=== PATIENT | female | born 1945 | race Two or more races ===

== ENCOUNTER 2019-12-27 14:20 | Emergency (ER) | payer MEDICARE, MEDICAID ==
[~2019-12-27] VITALS: Ht 154.9 cm; Wt 52.2 kg
[~2019-12-27 14:20] MED LIST: CIPRO500 MG PO; DONEPEZIL HCL5 MG ORAL; FOLIC ACID1 MG ORAL; LISINOPRIL10 MG ORAL; LORAZEPAM0.5 MG ORAL; MECLIZINE HCL25 MG ORAL; MELOXICAM7.5 MG PO; METFORMIN HCL500 M1 ORAL; OMEPRAZOLE20 M2 ORAL; PAROXETINE HC12.5 MG ORAL; SIMVASTATIN40 MG ORAL; SYNTHROID25 MCG ORAL; TRAZODONE HCL150 MG ORAL; TYLENOL EXTRA500 MG ORAL; ZYPREXA10 MG ORAL
[2019-12-27] MEDS ORDERED: URECHOLINE25 M1 ORAL (14:30)
[2019-12-27] MEDS ORDERED: CELEXA20 MG ORAL (14:30)
[2019-12-27] MEDS ORDERED: PRAVASTATIN SOD20 M1 ORAL (14:30)
[2019-12-27] MEDS ORDERED: LINZESS290 MCG PO (14:30)
[2019-12-27] MEDS ORDERED: BISACODYL5 MG ORAL (14:32)
[2019-12-27] MEDS ORDERED: MILK OF MA400 MG/51 ORAL (14:32)
[2019-12-27] MEDS ORDERED: DAILY VALUE1 EAC1 PO (14:32)
[2019-12-27] MEDS ORDERED: MIRALAX17 GM ORAL (14:32)
[2019-12-27] MEDS ORDERED: ASPIR 8181 MG ORAL (14:32)
[2019-12-27 15:00] VITALS: BP 115/69
--- NOTE | 2019-12-27 15:17 | Emergency Room Report ---
History of Present Illness General Chief Complaint: Multiple Trauma/Fall Source: Patient Present Illness HPI 74-year-old female history of dementia, psychiatric disease presented from nursing home facility after a unwitnessed fall. She has a hematoma to her forehead. She is unable to provide any history due to her baseline altered mental status. Allergies: Coded Allergies: No Known Allergies (Unverified , 03/16/19) COVID-19 Screening Contact w/high risk pt: No Recent Travel to affected area: No Experienced COVID-19 symptoms?: No COVID-19 Testing performed SLIP COVER OPERATOR: No Patient History Reviewed Nursing Documentation: PMH: Agreed; PSxH: Agreed Nursing Documentation-PMH Past Medical History: No History, Except For Hx Hypertension: Yes - hyperlipidemia Hx Diabetes: Yes Hx Cancer: No Hx Neurological Problems: Yes Hx Dementia: Yes Review of Systems All Other Systems: limited - Due to baseline altered mental status Physical Exam Vital Signs Date Time Temp Pulse Resp B/P (MAP) Pulse Ox O2 Delivery O2 Flow Rate FiO2 12/27/19 14:21 97.9 70 16 115/69 (84) 98 Room Air Sp02 EP Interpretation: reviewed, normal General Appearance: well appearing, no apparent distress Head: normocephalic, other - Hematoma noted to forehead, no depressions Eyes: bilateral eye PERRL, bilateral eye EOMI ENT: hearing grossly normal, moist mucus membranes Neck: full range of motion, supple Respiratory: lungs clear, normal breath sounds, no rhonchi, no respiratory distress, no retraction, no wheezing Cardiovascular #1: normal peripheral pulses, regular rate, rhythm, no murmur Gastrointestinal: non tender, soft, non-distended, no guarding Neurologic: alert, no focal defects, other - Moves all extremities equally Skin: normal color, warm/dry Medical Decision Making ER Course MDM: Differential included but not limited to mechanical fall, closed head injury, skull fracture, i traumatic ntracranial hemorrhage to name a few Clinical course-CT scans of the head and neck ordered and showed no evidence of acute traumatic injury. Patient was in no acute distress on my exam, stable vital signs. Will be discharged back to her nursing home facility. Last Vital Signs Date Time Temp Pulse Resp B/P (MAP) Pulse Ox O2 Delivery O2 Flow Rate FiO2 12/27/19 15:00 97.9 63 16 115/69 98 Room Air Disposition: SNF Condition: Stable Referrals: Erik Anthony MD (PCP) Carmelo Soliman M.D. Dec 27, 2019 15:17
--- NOTE | 2019-12-27 16:51 | Diagnostic Imaging Report ---
Indications: Mental status, status post fall Technique: Spiral acquisitions obtained through the brain. Angled axial and coronal 5 x 5 mm slices were reconstructed. Total dose length product 965 mGycm. CTDI vol(s) 53 mGy. Dose reduction achieved using automated exposure control Comparison: None. Findings: There is a very small right frontal scalp contusion. There is age-related enlargement of the ventricles and extra-axial CSF spaces. There is periventricular deep white matter low-attenuation, consistent with chronic microvascular ischemic change. Old lacunar infarct is seen in the left basal ganglia. Is evidence of prior bilateral cataract surgery. Visualized sinuses are clear. The mastoids are clear. The calvarium is intact. Impression: Chronic and age-related changes. Negative for acute intracranial bleed or mass effect Old left basal ganglia lacunar infarct Evidence of minimal right frontal scalp soft tissue injury The CT scanner at [facility] is accredited by the [employer] and the scans are performed using protocols designed to limit radiation exposure to as low as reasonably achievable to attain images of sufficient resolution adequate for diagnostic evaluation.
--- NOTE | 2019-12-27 16:58 | Diagnostic Imaging Report ---
Indication: Neck trauma, status post fall Technique: Spiral acquisitions obtained through the cervical spine. No IV contrast utilized. Multiplanar reconstructions were generated. Total dose length product 57 mGycm. CTDIvol(s) 2 mGy. Dose reduction achieved using automated exposure control. Comparison: none Findings: The bony alignment is normal. No prevertebral soft tissue swelling. Vertebral body heights are preserved. No acute fractures. There is ankylosis of the bilateral posterior C2-3 facets. No significant disc bulge or protrusion or spinal stenosis. The disc space is preserved. There is degenerative disc narrowing at C3-4. No significant disc bulge or protrusion. There is severe right and [id number] left neural foraminal stenosis. There is bilateral facet arthrosis. There is degenerative disc narrowing at C4-5. There is severe bilateral neural foraminal stenosis. No significant disc bulge or protrusion or spinal stenosis. There is degenerative disc narrowing at C5-6. There is mild left and moderate right neural foraminal stenosis. No significant disc bulge or protrusion. There is bilateral facet arthrosis. There is mild degenerative disc narrowing at C6-7. No significant disc bulge or protrusion or neural foraminal stenosis. The included extra spinal soft tissues are unremarkable. Impression: No acute bony trauma Degenerative changes as detailed above The CT scanner at [facility] is accredited by the [employer] and the scans are performed using protocols designed to limit radiation exposure to as low as reasonably achievable to attain images of sufficient resolution adequate for diagnostic evaluation.
[2019-12-27 19:05] VITALS: BP 146/64
[2019-12-27 20:45] VITALS: BP 144/94
== END 2019-12-27 20:45 ==
LOC: EDBD 14:20 → EMR 15:00
DX: S00.83XA Contusion of other part of head, initial encounter (principal); E78.5 Hyperlipidemia, unspecified; E11.9 Type 2 diabetes mellitus without complications; F03.90 Unspecified dementia, unspecified severity, without behavioral disturbance, psychotic disturbance, mood disturbance, and anxiety; W01.0XXA Fall on same level from slipping, tripping and stumbling without subsequent striking against object, initial encounter; Y93.9 Activity, unspecified; Y92.129 Unspecified place in nursing home as the place of occurrence of the external cause
CPT/HCPCS: 70450; 72125; 99284